=== PATIENT | male | born 1995 | race Caucasian/White ===

== ENCOUNTER 2022-05-24 13:07 | Emergency (ER) | payer SELFPAY ==
[2022-05-24] MEDS ORDERED: Ketorolac Tromethamine 30 MG/ML VIAL ONE (14:52)
== END 2022-05-24 15:02 | disposition home or self-care (01) ==
LOC: ERS 13:07
DX: K03.81 Cracked tooth (principal); K02.9 Dental caries, unspecified; Z87.891 Personal history of nicotine dependence
CPT/HCPCS: 96372; 99282; J1885

== ENCOUNTER 2022-05-28 00:36 | Emergency (ER) | payer SELFPAY | END 2022-05-28 01:09 | disposition home or self-care (01) | LOC: ERS 00:36 | DX: K02.9 Dental caries, unspecified (principal); K03.81 Cracked tooth; Z87.891 Personal history of nicotine dependence | CPT/HCPCS: 99282 ==